=== PATIENT | male | born 1990 | race Caucasian/White ===

== ENCOUNTER 2023-11-02 19:56 | Emergency (ER) | payer SELFPAY ==
[~2023-11-02] VITALS: Ht 167.6 cm; Wt 73.0 kg
[2023-11-02 19:57] VITALS: BP 107/64; PULSE 71; RESP 18; TEMP 98.4; O2SAT 96
[2023-11-02] MEDS: TETRACAINE 0.5% OPHTH DROPS 4ML EACHEYE ONE (22:45)
[2023-11-02] MEDS: FLUORESCEIN SODIUM 1MG/STRIP EACHEYE ONE (22:45)
== END 2023-11-03 03:08 | disposition left against medical advice (07) ==
LOC: ER 19:56
DX: T26.11XA Burn of cornea and conjunctival sac, right eye, initial encounter (principal); T26.12XA Burn of cornea and conjunctival sac, left eye, initial encounter; X58.XXXA Exposure to other specified factors, initial encounter; Y93.89 Activity, other specified; Y92.89 Other specified places as the place of occurrence of the external cause; Y99.8 Other external cause status
CPT/HCPCS: 99283